=== PATIENT | male | born 1995 | race American Indian/Alaskan Native ===

== ENCOUNTER 2019-06-26 17:14 | Emergency (ER) | payer OTHER ==
[2019-06-26 17:49] VITALS: BP 139/78
--- NOTE | 2019-06-26 18:14 | Emergency Department Report ---
Blank Doc - Documentation Documentation: 23-year-old male that presents with dizziness x5 days. This initial assessment/diagnostic orders/clinical plan/treatment(s) is/are subject to change based on patient's health status, clinical progression and re- assessment by fellow clinical providers in the ED. Further treatment and workup at subsequent clinical providers discretion. Patient/guardians urged not to elope from the ED as their condition may be serious if not clinically assessed and managed. Initial orders include: 1- Patient sent to [facility] for further evaluation and treatment 2- labs
[2019-06-26 18:58] LABS: Basophils # (Auto) 0.1 K/mm3 (0.0-0.1); Basophils % (Auto) 0.8 % (0.0-1.8); Eosinophils % (Auto) 0.2 % (0.0-4.3); Hematocrit 45.2 % (35.5-45.6); Hemoglobin 15.1 gm/dl (11.8-15.2); Lymphocytes # (Auto) 3.4 K/mm3 (1.2-5.4); Lymphocytes % (Auto) 45.7 % (13.4-35.0); Mean Corpuscular HGB Conc 34 % (32-34); Mean Corpuscular Volume 90 fl (84-94); Monocytes # (Auto) 0.7 K/mm3 (0.0-0.8); Monocytes % (Auto) 8.9 % (0.0-7.3); Platelet Count 314 K/mm3 (140-440); Red Blood Count 5.02 M/mm3 (3.65-5.03); Red Cell Distribution Width 12.6 % (13.2-15.2)
[2019-06-26 19:19] LABS: Alanine Aminotransferase 28 units/L (7-56); Albumin 4.6 g/dL (3.9-5); BUN/Creatinine Ratio 11; Blood Urea Nitrogen 11 mg/dL (9-20); Calcium 9.6 mg/dL (8.4-10.2); Hemolysis Index 8
[2019-06-26 20:36] LABS: Bacteria,Urine 1+ /HPF (Negative); Bilirubin,Urine NEG (Negative); Blood,Urine NEG (Negative); Calcium Oxalate Crystals,Urine FEW; Color,Urine Yellow (Yellow); Mucus,Urine FEW /HPF; Protein,Urine <15 mg/dL mg/dL (Negative); Urobilinogen,Urine < 2.0 mg/dL (<2.0)
[2019-06-26] MEDS ORDERED: diphenhydrAMINE 50 MG/ML VIAL IV ONE (22:19)
[2019-06-26] MEDS ORDERED: METOCLOPRAMIDE 10 MG/2 ML INJ IV ONE (22:19)
[2019-06-26] MEDS ORDERED: KETOROLAC 30 MG/1 ML INJ IV ONE (22:19)
--- NOTE | 2019-06-26 22:25 | Emergency Department Report ---
ED Headache HPI - General Chief Complaint: Dizziness Stated Complaint: VERTIGO SYM Time Seen by Provider: 06/26/19 18:12 - History of Present Illness Initial Comments: 23 year old -German male presents to the emergency room complaining of migraine headache and having headache dizziness. Patient reports vertigo but denies any room spinning or nausea no vomiting no change of vision. Patient does admit to have any URI symptoms last week and had anterior pressure. Since only taken Tylenol last dose at 2 PM. Patient denies any dizziness or room spinning but just feels like And some cloudiness or like fuzziness of a television. Patient reports that the feeling is better when he stays still lays down and worse with movement. Patient reports headaches of 4 out of 10. Patient reports a past medical history of seizure disorder as a child currently on no medication. Timing/Duration: other (5 days) Allergies/Adverse Reactions: Allergies No Known Allergies Allergy (Unverified 06/26/19 17:46) Home Medications: Ambulatory Orders Ibuprofen [Motrin 600 MG tab] 600 mg PO Q8H PRN #15 tablet 06/27/19 Meclizine [Antivert] 25 mg PO TID PRN #15 tablet 06/27/19 ED Review of Systems ROS: Stated complaint: VERTIGO SYM Other details as noted in HPI ED Past Medical Hx - Past Medical History Previous Medical History?: No - Surgical History Additional Surgical History: tonsilectomy - Social History Smoking Status: Never Smoker Substance Use Type: Alcohol - Medications Home Medications: Home Medications Medication Instructions Recorded Confirmed Last Taken Type Ibuprofen [Motrin 600 MG tab] 600 mg PO Q8H PRN #15 tablet 06/27/19 Unknown Rx Meclizine [Antivert] 25 mg PO TID PRN #15 tablet 06/27/19 Unknown Rx ED Physical Exam - General Limitations: No Limitations, Other (patient is currently on his ipad. ) ED Course Vital Signs 06/26/19 06/26/19 17:45 17:50 Temperature 98.2 F 98.2 F Pulse Rate 69 72 Respiratory 16 16 Rate Blood Pressure 139/78 139/78 O2 Sat by Pulse 95 95 Oximetry ED Medical Decision Making - Lab Data Result diagrams: 06/26/19 18:26 06/26/19 18:26 - Medical Decision Making 23 year old -German male presents to the emergency room complaining of migraine headache and having headache dizziness. Patient reports vertigo but denies any room spinning or nausea no vomiting no change of vision. Patient does admit to have any URI symptoms last week and had anterior pressure. Since only taken Tylenol last dose at 2 PM. Patient denies any dizziness or room spinning but just feels like And some cloudiness or like fuzziness of a television. Patient reports that the feeling is better when he stays still lays down and worse with movement. Patient reports headaches of 4 out of 10. Patient reports a past medical history of seizure disorder as a child currently on no medication. Critical care attestation.: If time is entered above; I have spent that time in minutes in the direct care of this critically ill patient, excluding procedure time. ED Disposition Clinical Impression: Vertigo, Migraine Disposition: [id number] TO HOME OR SELFCARE Is pt being admited?: No Does the pt Need Aspirin: No Condition: Stable Instructions: Vertigo (ED), Migraine Headache (ED) Additional Instructions: Please take medication as prescribed. Very important for you to follow up with her primary care provider I have listed one below for your convenience. Prescriptions: Meclizine [Antivert] 25 mg PO TID PRN #15 tablet PRN Reason: Vertigo Ibuprofen [Motrin 600 MG tab] 600 mg PO Q8H PRN #15 tablet PRN Reason: Pain Referrals: KD KASPER [Primary Care Provider] - 3-5 Days Forms: Work/School Release Form(ED)
== END 2019-06-27 00:10 | disposition home or self-care (01) ==
LOC: ED 17:14
DX: G43.909 Migraine, unspecified, not intractable, without status migrainosus (principal); Z90.89 Acquired absence of other organs
CPT/HCPCS: 36415; 80053; 81001; 85025; 96374; 99283; J1885; J1200; J2765